=== PATIENT | male | born 1950 | race Caucasian/White ===

== ENCOUNTER → 2020-10-16 13:06 | Outpatient (BNVA) | payer OTHER, SELFPAY | PROVIDERS: Visit Provider Urology | DX: N40.0 Benign prostatic hyperplasia without lower urinary tract symptoms (principal) | CPT/HCPCS: 99212 ==

== ENCOUNTER → 2021-05-31 12:49 | Outpatient (BNVA) | payer OTHER, SELFPAY | PROVIDERS: PCP Internal Medicine; Visit Provider Psychiatry & Neurology Neurology | DX: G20 Parkinson's disease (principal); M79.606 Pain in leg, unspecified | CPT/HCPCS: 99212 ==

== ENCOUNTER → 2021-09-20 13:20 | Outpatient (BNVA) | payer OTHER, SELFPAY | PROVIDERS: PCP Internal Medicine; Visit Provider Nurse Practitioner Family | DX: G20 Parkinson's disease (principal); G62.9 Polyneuropathy, unspecified; Z79.899 Other long term (current) drug therapy | CPT/HCPCS: 99212 ==

== ENCOUNTER → 2022-01-21 13:15 | Outpatient (BNVA) | payer OTHER, SELFPAY | PROVIDERS: PCP Internal Medicine; Visit Provider Psychiatry & Neurology Neurology | DX: G20 Parkinson's disease (principal); G62.9 Polyneuropathy, unspecified | CPT/HCPCS: 99212 ==

== ENCOUNTER → 2022-04-29 10:17 | Outpatient (BNVA) | payer OTHER, SELFPAY | PROVIDERS: PCP Internal Medicine; Visit Provider Psychiatry & Neurology Neurology | DX: G20 Parkinson's disease (principal); G62.9 Polyneuropathy, unspecified | CPT/HCPCS: 99212 ==

== ENCOUNTER → 2022-08-10 12:07 | Outpatient (BNVA) | payer OTHER, SELFPAY | PROVIDERS: PCP Internal Medicine; Visit Provider Psychiatry & Neurology Neurology | DX: G20 Parkinson's disease (principal); G62.9 Polyneuropathy, unspecified | CPT/HCPCS: 99212 ==

== ENCOUNTER 2023-02-08 12:12 | Outpatient (AMB) | payer OTHER, SELFPAY ==
--- NOTE | 2023-02-08 12:35 | MHC.OFFVIS ---
Intake Vital Signs 02/08/23 12:36 Height 6 ft Weight 245 lb 8 oz BMI 33.3 BP 110/70 Blood Pressure Location Rt brachial Position Sitting Respiration 16 Pulse 82 Pulse Source Pulse Oximeter Pulse Oximetry (%) 95 Oxygen Delivery Method Room Air Intake Visit Reasons: 6m follow up Parkinsons/Neuropathy-Conf Intake Note: Pt presents to the office for a 6 month follow up for neuropathy. He reports he's seen no change since his last visit. He c/o neuropathy of the toes, particularly at night. Allergies penicillin V Allergy (Unknown, Verified 02/08/23 12:35) rash Sulfa (Sulfonamide Antibiotics) Allergy (Unknown, Verified 02/08/23 12:35) rash IVP contrast Adverse Reaction (Unknown, Uncoded 02/08/23 12:35) headache for days Medication List - Last Reconciled 02/08/23 by Natasha Pacheco MD ascorbic acid (vitamin C) 180 mg (1.8 x 100 mg) PO DAILY 30 days carbidopa-levodopa 25-100 mg 1-1-1-1 cholecalciferol (vitamin D3) 25 mcg PO DAILY cholecalciferol (vitamin D3) 25 mcg PO DAILY desonide 0.05% appl topical ketoconazole 2% appl topical linaclotide 290 mcg PO DAILY linaclotide (Linzess) 290 mcg PO DAILY loratadine (Claritin) 10 mg PO DAILY magnesium oxide 400 mg PO DAILY mecobalamin (vitamin B12) 1,000 mcg PO DAILY 30 days montelukast 10 mg PO BEDTIME multivitamin 1 tab PO DAILY omega 3-ojc-qct-fish oil 1,000 mg (120 mg-180 mg) (Fish Oil) 1 cap PO TID omeprazole 40 mg PO DAILY pantoprazole 20 mg PO BID polyethylene glycol 3350 grams PO saliva substitute combo no.9 (Biotene Dry Mouth Oral Rinse mouthwash) 15 mL mucous membrane BID-QID PRN selegiline HCl 5 mg PO BID 90 days selegiline HCl 5 mg PO BID sildenafil 50 mg PO DAILY PRN simvastatin 20 mg PO BEDTIME vitamin E (dl, acetate) 450 mg (10 x 45 mg (100 unit)) PO DAILY 30 days xylitol-antiseptic comb no.5 ER simon mucous membrane HPI HPI Comments History of Present Illness Details 71 -yr-old male presents for f/u visit.He has no change in his parkinsons. He has intermittent tremors Pt's current PD medication regimen: Selegeline 5mg bid, Carbidopa-Levodopa 1 tab qid . Do medication effects last between doses: No Do you notice your medications wearing off or kicking in: No He reports severe pain in his legs at night due to neuropathy ? he feels his toes are cramped Sinemet [id number] He reports constipation ADL's: Ind w/ ADLs- has a walk-in shower Swallowing: May have difficulty w/ larger tabs- may cut them in half. Cough: None Drooling: Is prone to drooling and dry mouth. Orthostatic lightheadedness: Denies any recent issues. Constipation: Chronic constipation- now trying 4 glasses hot water, warm prune juice, omeprazole, protonix, miralax Linzess.He is followed up by Dr. Neri Freezing: No Stiffness: Can have transient stiffness if he sits too long.He has trouble getting in and out of the car. Tremor: Some left sided tremor Falls: None Hallucinations: None Memory: Ok. LTM is strong. May forget what he was about to do. Sleep: Tends to sleep on his side. He has a bed rail which helps with transfer. He takes naps during daytime 1/day Voids about twice a night. Followed by Dr Mcleod- [place] Exercise: He is active at home- does gardening/weeding. [facility] Medical History (Updated 02/08/23 @ 12:55 by Natasha Pacheco MD) Nocturnal foot cramps Parkinson's disease without dyskinesia or fluctuating manifestations Back pain Colon polyp Hyperlipidemia Arthritis GERD (gastroesophageal reflux disease) Parkinsons disease Early-onset Parkinson's disease High cholesterol Benign prostatic hyperplasia without lower urinary tract symptoms Surgical History History of surgery Family History Father HTN (hypertension) CAD (coronary artery disease) Mother CVA (cerebral vascular accident) Graves disease Social History Alcohol intake: current Alcohol intake frequency: holidays/special occasions only Patient Tobacco Use Status: Never used Tobacco Physical Exam Vital Signs: Last Vital Signs Pulse 82 02/08/23 12:36 Resp 16 02/08/23 12:36 BP 110/70 02/08/23 12:36 Pulse Ox 95 02/08/23 12:36 Oxygen Delivery Method Room Air 02/08/23 12:36 BMI result Body Mass Index 33.3 Const General: cooperative and no acute distress Orientation/consciousness: patient oriented x3 Resp Effort & Inspection: normal respiratory effort and able to speak in complete sentences Neuro Other: Expression: Mild decreased expression and blink Voice: normal Tone: right UE 2 cogwheel rigidity , left 1 cog wheel rigidity Dyskinesia: None FFM:mild decreased R>L Foot taps: Mild decrease R>L Gait: Slow to stand, slight stoop, decreased arm swing, short steps, steady gait. Psych: Pleasant affect Mild left UE rest tremors General: patient oriented x3 Assessment & Plan Assessment & Plan (1) Parkinson's disease without dyskinesia or fluctuating manifestations: Code(s): G20.A1 - Parkinson's disease without dyskinesia, without mention of fluctuations (2) Nocturnal foot cramps: Code(s): R25.2 - Cramp and spasm Plan continue sinemet 25/100 bid Selegeline 5mg bid I will trial him on ropinirole XR 2mg qhs Medications: New ropinirole ER 2 mg PO BEDTIME 30 tabs 0RF Coding Level of Care Code Est Pt Level 4 (83232) Diagnoses Parkinson's disease without dyskinesia or fluctuating manifestations G20.A1 Nocturnal foot cramps R25.2
[2023-02-08 12:36] VITALS: BP 110/70; PULSE 82; RESP 16; O2SAT 95; BMI 33.3
== END 2023-02-08 13:10 | disposition home or self-care (01) ==
PROVIDERS: Visit Provider Psychiatry & Neurology Neurology
DX: G20.A1 Parkinson's disease without dyskinesia, without mention of fluctuations (principal)
CPT/HCPCS: 99214

== ENCOUNTER → 2023-02-08 12:12 | Outpatient (BNVA) | payer OTHER, SELFPAY | PROVIDERS: Visit Provider Psychiatry & Neurology Neurology | DX: G20.A1 Parkinson's disease without dyskinesia, without mention of fluctuations (principal) | CPT/HCPCS: 99212 ==

== ENCOUNTER 2023-08-14 12:26 | Outpatient (AMB) | payer OTHER, SELFPAY ==
--- NOTE | 2023-08-14 12:30 | MHC.OFFVIS ---
Vital Signs 08/14/23 12:31 Height 6 ft Weight 238 lb BMI 32.3 BP 168/100 H Blood Pressure Location Rt brachial Position Sitting Respiration 17 Pulse 78 Pulse Source Pulse Oximeter Pulse Oximetry (%) 96 Oxygen Delivery Method Room Air Intake Visit Reasons: 6 mo f/u - Parkinsons-lvm Intake Note: Pt presents for 6 month follow up Parkinson's. Director Of Accreditation Required: No Allergies penicillin V Allergy (Unknown, Verified 08/14/23 12:31) rash Sulfa (Sulfonamide Antibiotics) Allergy (Unknown, Verified 08/14/23 12:31) rash IVP contrast Adverse Reaction (Unknown, Uncoded 08/14/23 12:31) headache for days Medication List - Last Reconciled 08/14/23 by Natasha Pacheco MD ascorbic acid (vitamin C) 180 mg (1.8 x 100 mg) PO DAILY 30 days carbidopa-levodopa 25-100 mg 1-1-1-1 cholecalciferol (vitamin D3) 25 mcg PO DAILY cholecalciferol (vitamin D3) 25 mcg PO DAILY desonide 0.05% appl topical ketoconazole 2% appl topical lactulose 10 grams (15 mL) PO BEDTIME linaclotide 290 mcg PO DAILY linaclotide (Linzess) 290 mcg PO DAILY loratadine (Claritin) 10 mg PO DAILY magnesium oxide 400 mg PO DAILY mecobalamin (vitamin B12) 1,000 mcg PO DAILY 30 days montelukast 10 mg PO BEDTIME multivitamin 1 tab PO DAILY omega 7-pqt-bej-fish oil 1,000 mg (120 mg-180 mg) (Fish Oil) 1 cap PO TID omeprazole 40 mg PO DAILY pantoprazole 20 mg PO BID polyethylene glycol 3350 grams PO ropinirole ER 2 mg PO BEDTIME saliva substitute combo no.9 (Biotene Dry Mouth Oral Rinse mouthwash) 15 mL mucous membrane BID-QID PRN selegiline HCl 5 mg PO BID 90 days selegiline HCl 5 mg PO BID sildenafil 50 mg PO DAILY PRN simvastatin 20 mg PO BEDTIME vitamin E (dl, acetate) 450 mg (10 x 45 mg (100 unit)) PO DAILY 30 days xylitol-antiseptic comb no.5 ER simon mucous membrane HPI Comments Details: 72 -yr-old male presents for f/u visit. He has intermittent tremors. He had 2 falls last week when he was bending down to pull weeds. He feels his balance is worse. Pt's current PD medication regimen: Selegeline 5mg bid, Carbidopa-Levodopa 1 tab qid . Do medication effects last between doses: No Do you notice your medications wearing off or kicking in: No He has pain in his legs at 8 pm -lasts 1 hr - he uses a OTC local cream which helps Sinemet [id number] He reports constipation ADL's: Ind w/ ADLs- has a walk-in shower Swallowing: May have difficulty w/ larger tabs- may cut them in half. Cough: None Drooling: Is prone to drooling and dry mouth. Orthostatic lightheadedness: Denies any recent issues. Constipation: Chronic constipation- now trying 4 glasses hot water, warm prune juice, omeprazole, protonix, miralax Linzess.He is followed up by Dr. eNri He feels he worsened and now uses enema . Freezing: No Stiffness: Can have transient stiffness if he sits too long.He has trouble getting in and out of the car. Tremor: Some left sided tremor Falls: None Hallucinations: None Memory: Ok. LTM is strong. May forget what he was about to do. Sleep: Tends to sleep on his side. He has a bed rail which helps with transfer. He takes naps during daytime 1/day Voids about twice a night. Followed by Dr Mcleod- [place] Exercise: He is active at home- does gardening/weeding. [facility] Medical History (Updated 08/14/23 @ 12:51 by Natasha Pacheco MD) Chronic constipation Colon polyp Constipation Nocturnal foot cramps Parkinson's disease without dyskinesia or fluctuating manifestations Back pain Colon polyp Hyperlipidemia Arthritis GERD (gastroesophageal reflux disease) Parkinsons disease Early-onset Parkinson's disease High cholesterol Benign prostatic hyperplasia without lower urinary tract symptoms Surgical History History of surgery Family History Father HTN (hypertension) CAD (coronary artery disease) Mother CVA (cerebral vascular accident) Graves disease Social History Alcohol intake: current Alcohol intake frequency: holidays/special occasions only Patient Tobacco Use Status: Never used Tobacco Physical Exam Vital Signs: Last Vital Signs Pulse 78 08/14/23 12:31 Resp 17 08/14/23 12:31 BP 168/100 H 08/14/23 12:31 Pulse Ox 96 08/14/23 12:31 Oxygen Delivery Method Room Air 08/14/23 12:31 BMI result Body Mass Index 32.3 Const General: cooperative and no acute distress Orientation/consciousness: patient oriented x3 Resp Effort & Inspection: normal respiratory effort and able to speak in complete sentences Neuro Other: Expression: Mild decreased expression and blink Voice: normal Tone: right UE 2 cogwheel rigidity , left 1 cog wheel rigidity Dyskinesia: None FFM:mild decreased R>L Foot taps: Mild decrease R>L Gait: Slow to stand, slight stoop, decreased arm swing, short steps, steady gait. Psych: Pleasant affect Mild left UE rest tremors General: patient oriented x3 Assessment & Plan Assessment & Plan (1) Parkinson's disease without dyskinesia or fluctuating manifestations: Code(s): G20.A1 - Parkinson's disease without dyskinesia, without mention of fluctuations Category: Medical (2) Nocturnal foot cramps: Code(s): R25.2 - Cramp and spasm Category: Medical (3) Chronic constipation: Code(s): K59.09 - Other constipation Category: Medical Plan continue sinemet 25/100 qid Selegeline 5mg bid Refer to GI for constipation Orders: Orders PT Evaluation and Treatment Today G20.A1 - Parkinson's disease without dyskinesia, without mention of fluctuations Referrals Gastroenterology Referral K59.00 - Constipation, unspecified, K63.5 - Polyp of colon Coding Level of Care Code Est Pt Level 4 (63427) Diagnoses Parkinson's disease without dyskinesia or fluctuating manifestations G20.A1 Nocturnal foot cramps R25.2 Chronic constipation K59.09
[2023-08-14 12:31] VITALS: BP 168/100; PULSE 78; RESP 17; O2SAT 96; BMI 32.3
== END 2023-08-14 13:04 | disposition home or self-care (01) ==
PROVIDERS: PCP Internal Medicine; Visit Provider Psychiatry & Neurology Neurology
DX: G20.A1 Parkinson's disease without dyskinesia, without mention of fluctuations (principal); K59.09 Other constipation
CPT/HCPCS: 99214

== ENCOUNTER → 2023-08-14 12:26 | Outpatient (BNVA) | payer OTHER, SELFPAY | PROVIDERS: PCP Internal Medicine; Visit Provider Psychiatry & Neurology Neurology | DX: G20.A1 Parkinson's disease without dyskinesia, without mention of fluctuations (principal); K59.09 Other constipation; Z79.899 Other long term (current) drug therapy | CPT/HCPCS: 99212 ==

== ENCOUNTER 2023-10-31 08:09 | Outpatient (AMB) | payer OTHER, SELFPAY ==
--- NOTE | 2023-10-31 08:16 | MHC.OFFVIS ---
Vital Signs 10/31/23 08:17 Height 6 ft Weight 238 lb BMI 32.3 BP 116/70 Blood Pressure Location Rt brachial Position Sitting Respiration 16 Pulse 84 Pulse Source Pulse Oximeter Pulse Oximetry (%) 98 Oxygen Delivery Method Room Air Intake Visit Reasons: Recurrent Falls - Confirmed Intake Note: Pt presents to the office for evaluation after multiple falls. 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 Allergies penicillin V Allergy (Unknown, Verified 10/31/23 08:17) rash Sulfa (Sulfonamide Antibiotics) Allergy (Unknown, Verified 10/31/23 08:17) rash IVP contrast Adverse Reaction (Unknown, Uncoded 10/31/23 08:17) headache for days Medication List - Last Reconciled 10/31/23 by Natasha Pacheco MD ascorbic acid (vitamin C) 180 mg (1.8 x 100 mg) PO DAILY 30 days carbidopa-levodopa 25-100 mg 04-17-04-17 cholecalciferol (vitamin D3) 25 mcg PO DAILY cholecalciferol (vitamin D3) 25 mcg PO DAILY desonide 0.05% appl topical ketoconazole 2% appl topical lactulose 10 grams (15 mL) PO BEDTIME linaclotide 290 mcg PO DAILY linaclotide (Linzess) 290 mcg PO DAILY loratadine (Claritin) 10 mg PO DAILY magnesium oxide 400 mg PO DAILY mecobalamin (vitamin B12) 1,000 mcg PO DAILY 30 days montelukast 10 mg PO BEDTIME multivitamin 1 tab PO DAILY omega 7-dba-bse-fish oil 1,000 mg (120 mg-180 mg) (Fish Oil) 1 cap PO TID omeprazole 40 mg PO DAILY pantoprazole 20 mg PO BID polyethylene glycol 3350 grams PO saliva substitute combo no.9 (Biotene Dry Mouth Oral Rinse mouthwash) 15 mL mucous membrane BID-QID PRN selegiline HCl 5 mg PO BID sildenafil 50 mg PO DAILY PRN simvastatin 20 mg PO BEDTIME vitamin E (dl, acetate) 450 mg (10 x 45 mg (100 unit)) PO DAILY 30 days xylitol-antiseptic comb no.5 ER simon mucous membrane HPI Comments Details: 72 -yr-old male presents for f/u visit. He had a fall when he stood from a chair and tried to sit back - the chair had wheels and had moved , he fell on the floor and could not move.the second fall was when he stood from the bed feels his slippers gave away .He is using his walker now at home.No dizziness. He has intermittent tremors. He feels his balance is worse. Pt's current PD medication regimen: Selegeline 5mg bid, Carbidopa-Levodopa 1 tab qid . Do medication effects last between doses: No Do you notice your medications wearing off or kicking in: No He has pain in his legs at 8 pm -lasts 1 hr - he uses a OTC local cream which helps Sinemet [id number] He reports constipation ADL's: Ind w/ ADLs- has a walk-in shower Swallowing: May have difficulty w/ larger tabs- may cut them in half. Cough: None Drooling: Is prone to drooling and dry mouth. Orthostatic lightheadedness: Denies any recent issues. Constipation: Chronic constipation- now trying 4 glasses hot water, warm prune juice, omeprazole, protonix, miralax Linzess.He is followed up by Dr. Neri He feels he worsened and now uses enema . Freezing: No Stiffness: Can have transient stiffness if he sits too long.He has trouble getting in and out of the car. Tremor: Some left sided tremor Falls: None Hallucinations: None Memory: Ok. LTM is strong. May forget what he was about to do. Sleep: Tends to sleep on his side. He has a bed rail which helps with transfer. He takes naps during daytime 1/day Voids about twice a night. Followed by Dr Mcleod- [place] Exercise: He is active at home- does gardening/weeding. [facility] Medical History Chronic constipation Colon polyp Constipation Nocturnal foot cramps Parkinson's disease without dyskinesia or fluctuating manifestations Back pain Colon polyp Hyperlipidemia Arthritis GERD (gastroesophageal reflux disease) Parkinsons disease Early-onset Parkinson's disease High cholesterol Benign prostatic hyperplasia without lower urinary tract symptoms Surgical History History of surgery Family History Father HTN (hypertension) CAD (coronary artery disease) Mother CVA (cerebral vascular accident) Graves disease Social History Alcohol intake: current Alcohol intake frequency: holidays/special occasions only Patient Tobacco Use Status: Never used Tobacco Physical Exam Vital Signs: Last Vital Signs Pulse 84 10/31/23 08:17 Resp 16 10/31/23 08:17 BP 116/70 10/31/23 08:17 Pulse Ox 98 10/31/23 08:17 Oxygen Delivery Method Room Air 10/31/23 08:17 BMI result Body Mass Index 32.3 Const General: cooperative and no acute distress Orientation/consciousness: patient oriented x3 Resp Effort & Inspection: normal respiratory effort and able to speak in complete sentences Neuro Other: Expression: Mild decreased expression and blink Voice: normal Tone: right UE 2 cogwheel rigidity , left 1 cog wheel rigidity Dyskinesia: None FFM:mild decreased R>L Foot taps: Mild decrease R>L Gait: Slow to stand, slight stoop, decreased arm swing, short steps, steady gait. Psych: Pleasant affect Mild left UE rest tremors General: patient oriented x3 Assessment & Plan Assessment & Plan (1) Parkinson's disease without dyskinesia or fluctuating manifestations: Code(s): G20.A1 - Parkinson's disease without dyskinesia, without mention of fluctuations Category: Medical (2) Nocturnal foot cramps: Code(s): R25.2 - Cramp and spasm Category: Medical (3) Chronic constipation: Code(s): K59.09 - Other constipation Category: Medical (4) Falls: Code(s): R29.6 - Repeated falls Category: Medical Plan continue sinemet 25/100 qid Selegeline 5mg bid continue PT discussed fall prevention Refer to GI for constipation Coding Level of Care Code Est Pt Level 4 (55411) Complex EM visit Add On G2211 Diagnoses Parkinson's disease without dyskinesia or fluctuating manifestations G20.A1 Nocturnal foot cramps R25.2 Chronic constipation K59.09 Falls R29.6
[2023-10-31 08:17] VITALS: BP 116/70; PULSE 84; RESP 16; O2SAT 98; BMI 32.3
== END 2023-10-31 08:43 | disposition home or self-care (01) ==
PROVIDERS: PCP Internal Medicine; Visit Provider Psychiatry & Neurology Neurology
DX: G20.A1 Parkinson's disease without dyskinesia, without mention of fluctuations (principal); K59.09 Other constipation; R29.6 Repeated falls
CPT/HCPCS: 99214

== ENCOUNTER → 2023-10-31 08:09 | Outpatient (BNVA) | payer OTHER, SELFPAY | PROVIDERS: PCP Internal Medicine; Visit Provider Psychiatry & Neurology Neurology | DX: R29.6 Repeated falls (principal); R25.2 Cramp and spasm; G20.A1 Parkinson's disease without dyskinesia, without mention of fluctuations; K59.09 Other constipation | CPT/HCPCS: 99212 ==

== ENCOUNTER 2024-02-01 14:27 | Outpatient (AMB) | payer OTHER, SELFPAY ==
--- NOTE | 2024-02-01 14:32 | MHC.OFFVIS ---
Vital Signs 02/01/24 14:33 Height 6 ft Weight 234 lb BMI 31.7 BP 139/78 Blood Pressure Location Rt brachial Position Sitting Intake Visit Reasons: Follow Up Intake Note: Patient presents for folloow up Allergies penicillin V Allergy (Unknown, Verified 02/01/24 14:36) rash Sulfa (Sulfonamide Antibiotics) Allergy (Unknown, Verified 02/01/24 14:36) rash IVP contrast Adverse Reaction (Unknown, Uncoded 02/01/24 14:36) headache for days Medication List - Last Reconciled 02/01/24 by Natasha Pacheco MD ascorbic acid (vitamin C) 180 mg (1.8 x 100 mg) PO DAILY 30 days carbidopa-levodopa 25-100 mg 1-1-1- cholecalciferol (vitamin D3) 25 mcg PO DAILY cholecalciferol (vitamin D3) 25 mcg PO DAILY desonide 0.05% appl topical ketoconazole 2% appl topical lactulose 10 grams (15 mL) PO BEDTIME linaclotide 290 mcg PO DAILY linaclotide (Linzess) 290 mcg PO DAILY loratadine (Claritin) 10 mg PO DAILY magnesium oxide 400 mg PO DAILY mecobalamin (vitamin B12) 1,000 mcg PO DAILY 30 days montelukast 10 mg PO BEDTIME multivitamin 1 tab PO DAILY omega 0-wvo-lhb-fish oil 1,000 mg (120 mg-180 mg) (Fish Oil) 1 cap PO TID omeprazole 40 mg PO DAILY pantoprazole 20 mg PO BID polyethylene glycol 3350 grams PO saliva substitute combo no.9 (Biotene Dry Mouth Oral Rinse mouthwash) 15 mL mucous membrane BID-QID PRN selegiline HCl 5 mg PO BID sildenafil 50 mg PO DAILY PRN simvastatin 20 mg PO BEDTIME vitamin E (dl, acetate) 450 mg (10 x 45 mg (100 unit)) PO DAILY 30 days xylitol-antiseptic comb no.5 ER simon mucous membrane HPI Comments Details: 73 -yr-old male presents for f/u visit. He feel his tremors in his left hand and leg has increased. He also has left heel pain for past 1 week .He describes as a sharp pain in the heel radiating worse in the mornings and at night.His neck is tight and his left shoulder is worse He has trouble with handwriting. No falls but multiple near falls He has intermittent tremors. He feels his balance is worse. Pt's current PD medication regimen: Selegeline 5mg bid, Carbidopa-Levodopa 1 tab qid . Do medication effects last between doses: No Do you notice your medications wearing off or kicking in: No He has pain in his legs at 8 pm -lasts 1 hr - he uses a OTC local cream which helps Sinemet [id number] He reports constipation ADL's: Ind w/ ADLs- has a walk-in shower Swallowing: May have difficulty w/ larger tabs- may cut them in half. Cough: None Drooling: Is prone to drooling and dry mouth. Orthostatic lightheadedness: Denies any recent issues. Constipation: Chronic constipation- now trying 4 glasses hot water, warm prune juice, omeprazole, protonix, miralax Linzess.He is followed up by Dr. Neri He feels he worsened and now uses enema . Freezing: No Stiffness: Can have transient stiffness if he sits too long.He has trouble getting in and out of the car. Tremor: Some left sided tremor Falls: None Hallucinations: None Memory: Ok. LTM is strong. May forget what he was about to do. Sleep: Tends to sleep on his side. He has a bed rail which helps with transfer. He takes naps during daytime 1/day Voids about twice a night. Followed by Dr Mcleod- [place] Exercise: He is active at home- does gardening/weeding. [facility] Medical History (Updated 02/01/24 @ 14:55 by Natasha Pacheco MD) Plantar fasciitis, left Chronic constipation Colon polyp Constipation Nocturnal foot cramps Parkinson's disease without dyskinesia or fluctuating manifestations Back pain Colon polyp Hyperlipidemia Arthritis GERD (gastroesophageal reflux disease) Parkinsons disease Early-onset Parkinson's disease High cholesterol Benign prostatic hyperplasia without lower urinary tract symptoms Surgical History History of surgery Family History Father HTN (hypertension) CAD (coronary artery disease) Mother CVA (cerebral vascular accident) Graves disease Social History Alcohol intake: current Alcohol intake frequency: holidays/special occasions only Patient Tobacco Use Status: Never used Tobacco Physical Exam Vital Signs: Last Vital Signs BP 139/78 02/01/24 14:33 BMI result Body Mass Index 31.7 Const General: cooperative and no acute distress Orientation/consciousness: patient oriented x3 Resp Effort & Inspection: normal respiratory effort and able to speak in complete sentences Neuro Other: Expression: Mild decreased expression and blink Voice: normal Tone: right UE 2 cogwheel rigidity , left 1 cog wheel rigidity Dyskinesia: None FFM:mild decreased R>L Foot taps: Mild decrease R>L Gait: Slow to stand, slight stoop, decreased arm swing, short steps, steady gait. Psych: Pleasant affect Mild left UE rest tremors General: patient oriented x3 Assessment & Plan Assessment & Plan (1) Parkinson's disease without dyskinesia or fluctuating manifestations: Code(s): G20.A1 - Parkinson's disease without dyskinesia, without mention of fluctuations Category: Medical (2) Nocturnal foot cramps: Code(s): R25.2 - Cramp and spasm Category: Medical (3) Chronic constipation: Code(s): K59.09 - Other constipation Category: Medical (4) Falls: Code(s): R29.6 - Repeated falls Category: Medical (5) Plantar fasciitis, left: Code(s): M72.2 - Plantar fascial fibromatosis Category: Medical Plan continue sinemet 25/100 qid Selegeline 5mg bid He has a podiatry appointment on 27 PT for plantar facsitis . apply ICE F/u GI for constipation Orders: Orders PT Evaluation and Treatment Today M72.2 - Plantar fascial fibromatosis Coding Level of Care Code Est Pt Level 4 (97498) Complex EM visit Add On G2211 Diagnoses Parkinson's disease without dyskinesia or fluctuating manifestations G20.A1 Nocturnal foot cramps R25.2 Chronic constipation K59.09 Falls R29.6 Plantar fasciitis, left M72.2
[2024-02-01 14:33] VITALS: BP 139/78; BMI 31.7
== END 2024-02-01 15:05 | disposition home or self-care (01) ==
LOC: HO.HSMS 14:27
PROVIDERS: PCP Internal Medicine; Visit Provider Psychiatry & Neurology Neurology
DX: G20.A1 Parkinson's disease without dyskinesia, without mention of fluctuations (principal); R25.2 Cramp and spasm; K59.09 Other constipation; R29.6 Repeated falls; M72.2 Plantar fascial fibromatosis
CPT/HCPCS: 99214

== ENCOUNTER → 2024-02-01 14:27 | Outpatient (BNVA) | payer OTHER, SELFPAY | PROVIDERS: PCP Internal Medicine; Visit Provider Psychiatry & Neurology Neurology | DX: G20.A1 Parkinson's disease without dyskinesia, without mention of fluctuations (principal); K59.09 Other constipation; M72.2 Plantar fascial fibromatosis; R29.6 Repeated falls | CPT/HCPCS: 99212 ==

== ENCOUNTER 2024-04-25 13:48 | Outpatient (AMB) | payer OTHER, SELFPAY ==
[2024-04-25 14:07] VITALS: BP 130/82; BMI 32.1
--- NOTE | 2024-04-25 14:07 | A.OFFVIS_ITS ---
Vital Signs 04/25/24 14:07 Height 6 ft Weight 237 lb BMI 32.1 BP 130/82 Blood Pressure Location Rt brachial Position Sitting Intake Visit Reasons: Follow Up Intake Note: Patient presents for follow up Allergies penicillin V Allergy (Unknown, Verified 04/25/24 14:10) rash Sulfa (Sulfonamide Antibiotics) Allergy (Unknown, Verified 04/25/24 14:10) rash IVP contrast Adverse Reaction (Unknown, Uncoded 04/25/24 14:10) headache for days HPI Comments Details: 73 -yr-old male presents for f/u visit.His parkinsons symptoms are stable. He has some difficulty with hand dexterity.He also has left heel pain .He describes as a sharp pain in the heel radiating worse in the mornings and at night.His neck is tight and his left shoulder is worse The pain in his heel has improved with foot inserts and PT. He has trouble with handwriting. No falls but some near falls. He has intermittent tremors. He feels his balance is worse. Pt's current PD medication regimen: Selegeline 5mg bid, Carbidopa-Levodopa 1 tab qid . He has pain in his legs at 8 pm -lasts 1 hr - he uses a OTC local cream which helps Sinemet [id number] He reports constipation ADL's: Ind w/ ADLs- has a walk-in shower Swallowing: May have difficulty w/ larger tabs- may cut them in half. Cough: None Drooling: Is prone to drooling and dry mouth. Orthostatic lightheadedness: Denies any recent issues. Constipation: Chronic constipation- now trying 4 glasses hot water, warm prune juice, omeprazole, protonix, miralax Linzess.He is followed up by Dr. Neri He feels he worsened and now uses enema . Freezing: No Stiffness: Can have transient stiffness if he sits too long.He has trouble getting in and out of the car. Tremor: Some left sided tremor Falls: None Hallucinations: None Memory: Ok. LTM is strong. May forget what he was about to do. Sleep: Tends to sleep on his side. He has a bed rail which helps with transfer. He takes naps during daytime 1/day Voids about twice a night. Followed by Dr Mcleod- Exercise: He is active at home- does gardening/weeding. [facility] Medical History Plantar fasciitis, left Chronic constipation Colon polyp Constipation Nocturnal foot cramps Parkinson's disease without dyskinesia or fluctuating manifestations Back pain Colon polyp Hyperlipidemia Arthritis GERD (gastroesophageal reflux disease) Parkinsons disease Early-onset Parkinson's disease High cholesterol Benign prostatic hyperplasia without lower urinary tract symptoms Surgical History History of surgery Family History Father HTN (hypertension) CAD (coronary artery disease) Mother CVA (cerebral vascular accident) Graves disease Social History Alcohol intake: current Alcohol intake frequency: holidays/special occasions only Patient Tobacco Use Status: Never used Tobacco Physical Exam Vital Signs: Last Vital Signs BP 130/82 04/25/24 14:07 BMI result Body Mass Index 32.1 Const General: cooperative and no acute distress Orientation/consciousness: patient oriented x3 Resp Effort & Inspection: normal respiratory effort and able to speak in complete sentences Neuro Other: Expression: Mild decreased expression and blink Voice: normal Tone: right UE 2 cogwheel rigidity , left 1 cog wheel rigidity Dyskinesia: None FFM:mild decreased R>L Foot taps: Mild decrease R>L Gait: Slow to stand, slight stoop, decreased arm swing, short steps, steady gait. Psych: Pleasant affect no tremors General: patient oriented x3 Assessment & Plan Assessment & Plan (1) Parkinson's disease without dyskinesia or fluctuating manifestations: Code(s): G20.A1 - Parkinson's disease without dyskinesia, without mention of fluctuations Category: Medical (2) Nocturnal foot cramps: Code(s): R25.2 - Cramp and spasm Category: Medical (3) Chronic constipation: Code(s): K59.09 - Other constipation Category: Medical (4) Falls: Code(s): R29.6 - Repeated falls Category: Medical (5) Plantar fasciitis, left: Code(s): M72.2 - Plantar fascial fibromatosis Category: Medical Plan continue sinemet 25/100 qid Selegeline 5mg bid f/u with podiatry F/u GI for constipation Coding Level of Care Code New Pt Level 4 (81804) Complex EM visit Add On G2211 Diagnoses Parkinson's disease without dyskinesia or fluctuating manifestations G20.A1 Nocturnal foot cramps R25.2 Chronic constipation K59.09 Falls R29.6 Plantar fasciitis, left M72.2
== END 2024-04-25 14:37 | disposition home or self-care (01) ==
PROVIDERS: PCP Internal Medicine; Visit Provider Psychiatry & Neurology Neurology
DX: G20.A1 Parkinson's disease without dyskinesia, without mention of fluctuations (principal); K59.09 Other constipation; R29.6 Repeated falls; M72.2 Plantar fascial fibromatosis
CPT/HCPCS: 99214

== ENCOUNTER → 2024-04-25 13:48 | Outpatient (BNVA) | payer OTHER, SELFPAY | PROVIDERS: PCP Internal Medicine; Visit Provider Psychiatry & Neurology Neurology | DX: G20.A1 Parkinson's disease without dyskinesia, without mention of fluctuations (principal); M72.2 Plantar fascial fibromatosis; R25.2 Cramp and spasm; R29.6 Repeated falls; K59.09 Other constipation | CPT/HCPCS: 99212 ==

== ENCOUNTER 2024-10-17 14:41 | Outpatient (AMB) | payer OTHER, SELFPAY ==
[2024-10-17 14:44] VITALS: BP 132/82; PULSE 82
--- NOTE | 2024-10-17 14:44 | MHC.OFFVIS ---
Vital Signs 10/17/24 14:44 Height 6 ft BP 132/82 Blood Pressure Location Rt brachial Position Sitting Pulse 82 Pulse Source Pulse Oximeter Intake Visit Reasons: Follow Up Intake Note: Patient following up Allergies penicillin V Allergy (Unknown, Verified 10/17/24 14:45) rash Sulfa (Sulfonamide Antibiotics) Allergy (Unknown, Verified 10/17/24 14:45) rash IVP contrast Adverse Reaction (Unknown, Uncoded 10/17/24 14:45) headache for days HPI Comments Details: 73 -yr-old male presents for f/u visit.His parkinsons symptoms are stable. The increase in sinemet 25/100 dose to 1 1/2 tabs qid helped He has some difficulty with hand dexterity. The night time cramps are better with a supplement ( Nervex rub ) from [facility].He also has left heel pain .He describes as a sharp pain in the heel radiating worse in the mornings and at night.His neck is tight and his left shoulder is worse The pain in his heel has improved with foot inserts and PT. He has trouble with handwriting. No falls He has intermittent tremors. He has dizziness when he clim[place] the steps in the [facility]- using an elevator helps. Pt's current PD medication regimen: Selegeline 5mg bid, Carbidopa-Levodopa 1 1/2 tab qid . He reports constipation ADL's: Ind w/ ADLs- has a walk-in shower Swallowing: May have difficulty w/ larger tabs- may cut them in half. Cough: None Drooling: Is prone to drooling and dry mouth. Orthostatic lightheadedness: Denies any recent issues. Constipation: Chronic constipation- now trying 4 glasses hot water, warm prune juice, omeprazole, protonix, miralax Linzess.He is followed up by Dr. Neri He feels he worsened and now uses enema . Freezing: No Stiffness: Can have transient stiffness if he sits too long.He has trouble getting in and out of the car. Tremor: Some left sided tremor Falls: None Hallucinations: None Memory: Ok. LTM is strong. May forget what he was about to do. Sleep: Tends to sleep on his side. He has a bed rail which helps with transfer. He takes naps during daytime 1/day Voids about twice a night. Followed by Dr Nannette OTERO Exercise: He is active at home- does gardening/weeding. [facility] Medical History Plantar fasciitis, left Chronic constipation Colon polyp Constipation Nocturnal foot cramps Parkinson's disease without dyskinesia or fluctuating manifestations Back pain Colon polyp Hyperlipidemia Arthritis GERD (gastroesophageal reflux disease) Parkinsons disease Early-onset Parkinson's disease High cholesterol Benign prostatic hyperplasia without lower urinary tract symptoms Surgical History History of surgery Family History Father HTN (hypertension) CAD (coronary artery disease) Mother CVA (cerebral vascular accident) Graves disease Social History Alcohol intake: current Alcohol intake frequency: holidays/special occasions only Patient Tobacco Use Status: Never used Tobacco Physical Exam Vital Signs: Last Vital Signs Pulse 82 10/17/24 14:44 BP 132/82 10/17/24 14:44 Const General: cooperative and no acute distress Orientation/consciousness: patient oriented x3 Resp Effort & Inspection: normal respiratory effort and able to speak in complete sentences Neuro Other: Expression: Mild decreased expression and blink Voice: normal Tone: right UE 2 cogwheel rigidity , left 1 cog wheel rigidity Dyskinesia: None FFM:mild decreased R>L Foot taps: Mild decrease R>L Gait: Slow to stand, slight stoop, decreased arm swing, short steps, steady gait. Psych: Pleasant affect no tremors General: patient oriented x3 Assessment & Plan Assessment & Plan (1) Parkinson's disease without dyskinesia or fluctuating manifestations: Code(s): G20.A1 - Parkinson's disease without dyskinesia, without mention of fluctuations Category: Medical (2) Nocturnal foot cramps: Code(s): R25.2 - Cramp and spasm Category: Medical (3) Chronic constipation: Code(s): K59.09 - Other constipation Category: Medical (4) Falls: Code(s): R29.6 - Repeated falls Category: Medical (5) Plantar fasciitis, left: Code(s): M72.2 - Plantar fascial fibromatosis Category: Medical Plan continue sinemet 25/100 1 1/2 tabs qid Selegeline 5mg bid f/u with podiatry F/u GI for constipation Coding Level of Care Code Est Pt Level 4 (43116) Complex EM visit Add On G2211 Diagnoses Parkinson's disease without dyskinesia or fluctuating manifestations G20.A1 Nocturnal foot cramps R25.2 Chronic constipation K59.09 Falls R29.6 Plantar fasciitis, left M72.2
== END 2024-10-17 15:49 | disposition home or self-care (01) ==
PROVIDERS: PCP Internal Medicine; Visit Provider Psychiatry & Neurology Neurology
DX: G20.A1 Parkinson's disease without dyskinesia, without mention of fluctuations (principal); R25.2 Cramp and spasm; K59.09 Other constipation; R29.6 Repeated falls; M72.2 Plantar fascial fibromatosis
CPT/HCPCS: 99214

== ENCOUNTER → 2024-10-17 14:41 | Outpatient (BNVA) | payer OTHER, SELFPAY | PROVIDERS: PCP Internal Medicine; Visit Provider Psychiatry & Neurology Neurology | DX: M72.2 Plantar fascial fibromatosis (principal); G20.A1 Parkinson's disease without dyskinesia, without mention of fluctuations; K59.09 Other constipation; R29.6 Repeated falls | CPT/HCPCS: 99212 ==

== ENCOUNTER 2025-03-26 15:12 | Outpatient (AMB) | payer OTHER, SELFPAY ==
[2025-03-26 15:11] VITALS: BP 162/100; PULSE 75; O2SAT 97; BMI 31.3
--- NOTE | 2025-03-26 15:11 | A.OFFVIS_ITS ---
Vital Signs 03/26/25 15:11 Height 6 ft Weight 231 lb 2 oz BMI 31.3 BP 162/100 H Blood Pressure Location Rt brachial Position Sitting Pulse 75 Pulse Source Pulse Oximeter Pulse Oximetry (%) 97 Oxygen Delivery Method Room Air Intake Visit Reasons: Follow up Intake Note: Follow up Parkinson's disease without dyskinesia or fluctuating manifestations, constipation and falls Consumer Experience Consultant Required: No Accompanied by: Self / Same As Patient Allergies penicillin V Allergy (Unknown, Verified 03/26/25 15:11) rash Sulfa (Sulfonamide Antibiotics) Allergy (Unknown, Verified 03/26/25 15:11) rash IVP contrast Adverse Reaction (Unknown, Uncoded 10/17/24 14:45) headache for days HPI Comments Details: 73 -yr-old male presents for f/u visit.His parkinsons symptoms are stable.He reports drop in blood pressure - when he climbs up the stairs. The main issue today is constipation.He saw GI - his bowel movements have improved. Milk of magnesia and colon prep once a month.He does enema twice a day He drinks lot of fluids . He reports short term memory issues.No falls. He has some difficulty with hand dexterity. The night time cramps are better with a supplement ( Nervex rub ) from [facility].He also has left heel pain . The pain in his heel has improved with foot inserts and PT- resolved He has trouble with handwriting. N He has intermittent tremors. He has dizziness when he climbs the steps in the fitness center- using an elevator helps. Pt's current PD medication regimen: Selegeline 5mg bid, Carbidopa-Levodopa 1 1/2 tab qid . ADL's: Ind w/ ADLs- has a walk-in shower Swallowing: May have difficulty w/ larger tabs- may cut them in half. Cough: None Drooling: Is prone to drooling and dry mouth. Orthostatic lightheadedness: Denies any recent issues. Constipation: Chronic constipation- now trying 4 glasses hot water, warm prune juice, omeprazole, protonix, miralax Linzess.He feels he worsened and now uses enema . Freezing: No Stiffness: Can have transient stiffness if he sits too long.He has trouble getting in and out of the car. Tremor: Some left sided tremor Falls: None Hallucinations: None Memory: . LTM is strong. May forget what he was about to do. Sleep: Tends to sleep on his side. He has a bed rail which helps with transfer. He takes naps during daytime 1/day Voids about twice a night. Followed by Dr Nannette OTERO Exercise: He is active at home- does gardening/weeding. [facility] Medical History Plantar fasciitis, left Chronic constipation Colon polyp Constipation Nocturnal foot cramps Parkinson's disease without dyskinesia or fluctuating manifestations Back pain Colon polyp Hyperlipidemia Arthritis GERD (gastroesophageal reflux disease) Parkinsons disease Early-onset Parkinson's disease High cholesterol Benign prostatic hyperplasia without lower urinary tract symptoms Surgical History History of surgery Family History Father HTN (hypertension) CAD (coronary artery disease) Mother CVA (cerebral vascular accident) Graves disease Social History Alcohol intake: current Alcohol intake frequency: holidays/special occasions only Patient Tobacco Use Status: Never used Tobacco Physical Exam Vital Signs: Last Vital Signs Pulse 75 03/26/25 15:11 BP 162/100 H 03/26/25 15:11 Pulse Ox 97 03/26/25 15:11 Oxygen Delivery Method Room Air 03/26/25 15:11 BMI result Body Mass Index 31.3 Const General: cooperative and no acute distress Orientation/consciousness: patient oriented x3 Resp Effort & Inspection: normal respiratory effort and able to speak in complete sentences Neuro Other: Expression: Mild decreased expression and blink Voice: normal Tone: right UE 2 cogwheel rigidity , left 1 cog wheel rigidity Dyskinesia: None FFM:mild decreased R>L Foot taps: Mild decrease R>L Gait: Slow to stand, slight stoop, decreased arm swing, short steps, steady gait. Psych: Pleasant affect no tremors General: patient oriented x3 Assessment & Plan Assessment & Plan (1) Parkinson's disease without dyskinesia or fluctuating manifestations: Code(s): G20.A1 - Parkinson's disease without dyskinesia, without mention of fluctuations Category: Medical (2) Nocturnal foot cramps: Code(s): R25.2 - Cramp and spasm Category: Medical (3) Chronic constipation: Code(s): K59.09 - Other constipation Category: Medical (4) Falls: Code(s): R29.6 - Repeated falls Category: Medical (5) Plantar fasciitis, left: Code(s): M72.2 - Plantar fascial fibromatosis Category: Medical Plan change sinemet 25/100 1 tab 6 times a day- patient reports difficulty with cutting pills Selegeline 5mg bid f/u with podiatry F/u GI for constipation Monitor cognition Coding Level of Care Code Est Pt Level 4 (14245) Add On Problem Visit Only Diagnoses Parkinson's disease without dyskinesia or fluctuating manifestations G20.A1 Nocturnal foot cramps R25.2 Chronic constipation K59.09 Falls R29.6 Plantar fasciitis, left M72.2
--- OUTSIDE RECORDS SUMMARY | 2025-03-26 23:45 | XMS_ITS | Encounter Summary ---
[facility] [address] [place] [address] Care Team Providers Care Implementation Coordinator Name Role Phone Leticia Muniz MD Primary Care Prov ider Encounter Details Date Type Department Care Team (Late st Contact Info) Description 01/23/2025 Results Follow-Up Gastroenterology - [address] [place] [address] Chris Cortez MD [address] [address] Social History Tobacco Use Types Packs/Day Years Used Date Smoking Tobacco: Never Smokeless Tobacco: Never Alcohol Use Standard Drinks/Week Comments Never 0 (1 standard drink = 0.6 oz pur e alcohol) Sex and Gender Information Value Date Recorded Sex Assigned at Male 04/22/2024 6:14 AM EST Legal Sex Male 7:46 AM EST Gender Identity Male 04/22/2024 6:14 AM EST Sexual Orientation Straight 04/22/2024 6: 15 AM EST documented as of this encounter Functional Status * Are you deaf or do you have serious difficulty hearing? Answer Date of Assessment Author No 11/11/2024 4:43 PM EDT Manisha Dubois RN * Are you blind or do you have serious difficulty seeing, even when wearing glasses? Answer Date of Assessment Author No 11/11/2024 4:43 PM EDT Manisha Dubois RN * Do you have serious difficulty walking or climbing stairs? Answer Date of Assessment Author No 11/11/2024 4:43 PM EDT Manisha Dubois RN * Do you have serious difficulty dressing or bathing? Answer Date of Assessment Author No 11/11/2024 4:43 PM EDT Manisha Dubois RN * Because of a physical, mental, or emotional condition, do you have serious difficulty doing errandsalone such as visiting the doctor? Answer Date of Assessment Author No 11/11/2024 4:43 PM EDT Manisha Dubois RN documented as of this encounter Mental Status * Because of a physical, mental, or emotional condition, do you have serious difficulty concentrating, remembering, or making decisions? (5 years old or older) Answer Entry Date Author No 11/11/2024 4:43 PM EDT Manisha Dubois RN documented in this encounter Plan of Treatment Upcoming Encounters Date Type Department Care Team (Late st Contact Info) Description 05/30/2025 3:45 PM EST Office Visit Adult Medicine [facility] [address] [place] [address] Leticia Muniz MD [address] [place] [address] 08/01/2025 2:00 PM EDT Office Visit Gastroenterology - [address] [phone] Tyra Myers NP [address] [address] documented as of this encounter Visit Diagnoses Not on filedocumented in this encounter Care Teams Implementation Coordinator Relationship Specialty Start Date End Date Leticia Muniz MD [address] [place] [address] PCP - General Internal Medicine 08/26/20 documented as of this encounter
--- OUTSIDE RECORDS SUMMARY | 2025-03-26 23:45 | XMS_ITS | Clinical Summary ---
Author Organization [facility] [address] [facility] lding Address [address] [place] [address] Phone Care Team Providers Care Finance Effectiveness Manager Name Role Phone Leticia Muniz MD Primary Care Prov ider Allergies Active Allergy Reactions Criticality Noted Date Comments House Dust 12/27/2016 Iodinated Contrast Media Headache 02/24/2014 Mold 12/27/2016 Mushroom 01/22/2025 Penicillins Rash 01/05/2012 Pollen Extracts 12/27/2016 Sulfa (Sulfonamide Antibiotics) Hives,Rash 12/17 Medications acetaminophen (TYLENOL EXTRA STRENGTH ORAL) Take by mouth. Active cyanocobalamin (VITAMIN B-12) 1,000 mcg tablet Take 1 tablet by mouth daily. 2 Active inulin-chromium picolinate (Fiber Select Gummies) 2-100 gram-mcg tablet,chewable Take 1 Tablet by mouth 2 times daily as needed (fiber for bowel movements). 4 Active loratadine/pseudo ephedrine (CLARITIN-D 24 HOUR ORAL) Take by mouth daily. Active MAGNESIUM OXIDE ORAL Take 1 Tablet by mouth daily. 3 Active psyllium husk, with sugar, (Fiber, psyllium husk-sugar,) 3.4 gram/7 gram powder Take by mouth. Activ e saliva substitute (Biotene Dry Mouth Oral Rinse) mouthwash Take by mouth. Activ e multivitamin (MULTIPLE VITAMINS ORAL) Take 1 tablet by mouth daily. Active sodium chloride 3 % aerosol,spray by Nasal route. Active sodium flouride (LURIDE) 0.5 mg/mL oral solution Take by mouth. Activ e barium sulfate (Readi-Cat 2) 2 % (w/v) suspension Take 900 mL by mouth 2 times daily. 3 Active betamethasone, augmented, (DIPROLENE-AF) 0.05 % cream APPLY SPARINGLY THREE TIMES A DAY FOR POISON CLAY OF LEGS UNTIL IMPROVED 4 Active polycarbophil (FIBERCON) 625 mg tablet Take 1 tablet (625 mg total) by mouth 2 (two) times a day. 3 Active carbidopa-levodop a (SINEMET) 25-100 mg per tablet Takes 150mg total daily 2 Active cholecalciferol (VITAMIN D-3) 25 mcg (1,000 unit) tablet Take 1 Tablet by mouth daily. Change in dose based on recent lab work. 2 Active desonide (DESOWEN) 0.05 % cream Apply topically 2 times daily. Apply topical prn Active docusate sodium (COLACE) 100 mg capsule Take 1 capsule (100 mg total) by mouth 2 (two) times a day. 3 Active flunisolide (NASALIDE) 25 mcg (0.025 %) spray,non-aerosol by Nasal route. Active ketoconazole (NIZORAL) 2 % cream 1 Active lactulose (Generlac) solution Take 15 mL by mouth 3 times daily as needed for Other. 3 Active lactulose (CHRONULAC) solution Take 30 mL by mouth 2 times daily. Pts #- [id number] 3 Active aluminum-magnesiu m hydroxide-simethi cone (MAALOX) 200-200-20 mg/5 mL suspension Take 15 mL by mouth 4 times daily (before meals and nightly). 3 Active montelukast (SINGULAIR) 10 mg tablet Take 10 mg by mouth. Seasonal Active omega-3 acid ethyl esters (LOVAZA) 1 gram capsule Take by mouth 3 times daily. Active pantoprazole (PROTONIX) 20 mg EC tablet Take 1 Tablet by mouth 2 times daily (before meals). 3 Active polyethylene glycol (PEG) 17 gram/dose oral powder Take 17 g by mouth 3 times daily. Pts #=[id number] 3 Active prucalopride (Motegrity) 1 mg tablet Take 1 Tablet by mouth 2 times daily as needed for Other. 3 Active selegiline (ELDEPRYL) 5 mg tablet Take 1 Tab by mouth 2 times daily (with meals). 9 Active simvastatin (ZOCOR) 20 mg tablet TAKE 1 TABLET BY MOUTH AT BEDTIME 3 Active omeprazole (PriLOSEC) [address] capsule Take 1 capsule (40 mg total) by mouth 1 (one) time each day. Do not crush or chew. Active psyllium (METAMUCIL) powder Take 1 packet by mouth 1 (one) time each day. Active magnesium hydroxide (MILK OF MAGNESIA) 400 mg/5 mL suspension Take 5 mL by mouth 1 (one) time each day if needed for constipation. Active polyethylene glycol (MIRALAX) 17 gram packetIndications :Constipation, unspecified constipation type Take 17 g by mouth 1 (one) time each day. 510 g 11 5 01/23/20 26 Active linaCLOtide (Linzess) 290 mcg capsuleIndication s:Constipation, unspecified constipation type Take 1 capsule (290 mcg total) by mouth 1 (one) time each day before breakfast. 30 each 11 5 01/24/20 26 Active fluticasone propionate (FLONASE) 50 mcg/actuation nasal sprayIndications: Acute laryngitis Administer 2 sprays into each nostril 1 (one) time each day. Shake gently. Before first use, prime pump. After use, clean tip and replace cap. 16 g 5 5 02/19/20 Active Active Problems Problem Noted Date Diagnosed Date Prediabetes 06/04/2024 Urinary incontinence 05/24/2024 Abdominal discomfort 03/04/2024 Constipation 03/04/2024 Diverticulitis 03/04/2024 Gastric pain 03/04/2024 GERD (gastroesophageal reflux disease) Parkinson's disease 04/08/2019 Peripheral neuropathy 03/11/2019 Osteoarthritis 01/10/2019 Overview (03/04/2024): Lumbosacral Spine, Hips Obesity (BMI 30.0-34.9) 06/07/2018 Tinnitus 10/25/2016 IBS (irritable bowel syndrome) 08/01/2016 Overview (03/04/2024): Sees Dr Hall BPH (benign prostatic hyperplasia) 06/17/2014 Colon polyp 06/12/2014 Overview (03/04/2024): [place] done 08/2015, due in 5 yrs Fatty liver 05/22/2013 Low back pain 02/27/2012 Overview (03/04/2024): Sees Dr Herber Arzola, chiropractor Allergic rhinitis 01/05/2012 Constipation, slow transit 01/05/2012 Hypercholesteremia 01/05/2012 Encounters Date Type Department Care Team Description 02/21/2025 Telephone Adult Medicine - [place] [address] [place] [phone] Leticia Fontana MD 02/18/2025 11:30 AM EST Office Visit Adult Medicine [facility] [address] [place] [phone] Emma Elliott NP Acute laryngitis (Primary Dx) 02/18/[address] [facility] [address] [place] [phone] Leticia Fontana MD 01/23/2025 Results Follow-Up Gastroenterology - [address] [phone] Chris Cortez MD 01/22/2025 11:20 AM EDT - 01/22/2025 11:59 PM EDT Hospital Encounter [facility] Xray [address] [place] [phone] Constipation, unspecified constipation type Discharge Disposition: Home or Self Care 01/22/2025 10:20 AM EDT Office Visit Gastroenterology - [address] [phone] Chris Cortez MD Constipation, unspecified constipation type (Primary Dx) 01/22/2025 Telephone Gastroenterology - [address] [place] [address] [facility] [address] [place] [address] Chris Cortez MD 12/25/2024 Telephone Adult Medicine - [place] [address] [place] [address] Tim John PA from Last 3 Months Immunizations Immunization Administration Dates Next Due Influenza trivalent, 0.5mL ( Fluad) 65yo and older 12/22/2023,12/29/2022,12/27/2021,12/30,12/22/2019,01/17/2019,12/28/2017 ,12/27/2016 Influenza trivalent, 0.5mL ( Fluzone High-dose) 65yo and older 01/07/2025 Influenza trivalent, 0.5mL, preservative free (Fluarix; FluLaval; Fluzone) ages 6mo and older (Afluria) 3 years and older 12/31/2015,12/24/2011,07/10/2005 [facility] SARS-CoV-2 COVID-19, mRNA, LNP-S, preservative free 03/03/2022,10/07/2021,02/09/2021,06/24,05/27/2020 [facility] SARS-CoV-2 COVID-19, mRNA, LNP-S, preservative free 01/11/2023 Pneumococcal conjugate 13 va lent (Prevnar 13, PCV13) 2mo and older 12/27/2016 Pneumococcal polysaccharide 23 valent (Pneumovax 23) 2yo and older 06/07/2018,07/10/2005 Td Tetanus diptheria (Tdvax) 7yo and older 08/11/2010,11/08/2002 Tdap Tetanus diptheria acell ular pertussis (Boostrix; Adacel) 7yo and older 01/31/2022,08/12/2011 Zoster Live 01/12/2019 Zoster recombinant (Shingrix ) 19yo and older 11/19/2024,01/17/2019,10/03/2018,09/20 Surgical History Surgery Date Site/Laterality Comments PROSTATE SURGERY PROCEDURE: HISTORICAL PROSTATE SURGERY; COMMENT: for BPH has uretheral needle ablation ABDOMINAL SURGERY 2005 PROCEDURE: HISTORICAL ABDOMINAL SURGERY; COMMENT: exploratory laprotomy for ileus COLONOSCOPY 10/31/2005 PROCEDURE: HISTORICAL COLONOSCOPY; COMMENT: right colon polyp- Andrez Hall M.D. COLONOSCOPY 09/28/2010 PROCEDURE: HISTORICAL COLONOSCOPY; COMMENT: Diverticulosis COLONOSCOPY 2002 PROCEDURE: HISTORICAL COLONOSCOPY; COMMENT: benign polyp COLONOSCOPY PROCEDURE: HISTORICAL COLONOSCOPY; COMMENT: [address] Hall- needs repeat in 2020 Medical History Medical History Date Comments Hypercholesteremia 01/05/2012 DX:Hyperchole steremia Allergic rhinitis 01/05/2012 DX:Allergic rh initis Colon polyp 06/12/2014 DX:Colon polyp GERD (gastroesophageal reflux disease) DX:GERD (gastroesophageal reflux disease) IBS (irritable bowel syndrome) 08/01/2016 D X:IBS (irritable bowel syndrome); COMMENT: Sees Dr Hall Tinnitus 10/25/2016 DX:Tinnitus Osteoarthritis 01/10/2019 DX:Osteoarthriti s; COMMENT: Lumbosacral Spine, Hips Fatty liver 05/22/2013 DX:Fatty liver Constipation, slow transit 01/05/2012 DX:Co nstipation, slow transit BPH (benign prostatic hyperplasia) 06/17/2014 DX:BPH (benign prostatic hyperplasia) Low back pain 02/27/2012 DX:Low back pain ; COMMENT: Sees Dr Herber Arzola, chiropractor Obesity (BMI 30.0-34.9) 06/07/2018 DX:Obesi ty (BMI 30.0-34.9) Constipation DX:Constipation Peripheral neuropathy 03/11/2019 DX:Periphe ral neuropathy Abdominal discomfort DX:Abdomina l discomfort History of gastroenteritis DX:Hi story of gastroenteritis Diverticulitis DX:Diverticuliti s Gastric pain DX:Gastric pain Fatty liver DX:Fatty liver Dry mouth DX:Dry mouth Parkinson's disease (CMS/HCC V24, CMS/HCC V28) DX:Parkinson's disease (HCC) ; COMMENT: Dr. Rudolph Abdominal discomfort DX:Abdomina l discomfort Abdominal discomfort DX:Abdomina l discomfort Family History Medical History Relation Name Comments Other: Graves Disease Brother 1 Prostate cancer Brother 2 Hyperthyroid ism Other: Back problems Brother 3 X3 No Known Problems Brother 4 Hypertension Father CVA, CAD, age 53 Heart failure Mother age 89 Other: healthy Sister 1 Relation Name Status Comments Brother 1 Alive Brother 2 Alive Brother 3 Alive Brother 4 Alive Father age 64, HT N, CVA Maternal Grandfather Maternal Grandmother Mother CHF Paternal Grandfather Paternal Grandmother Sister 1 Sister 2 Alive Social History Tobacco Use Types Packs/Day Years [...] Orientation Straight 04/22/2024 6: 15 AM EST Last Filed Vital Signs Vital Sign Reading Time Taken Comments Blood Pressure 143/83 02/18/2025 11:28 AM EST Pulse 75 02/18/2025 11:28 AM EST Temperature 36.5 C (97.7 F) 02/18/2025 11:28 AM EST Respiratory Rate 20 11/22/2024 2:03 PM EDT Oxygen Saturation 100% 11/11/2024 4:03 PM EDT Inhaled Oxygen Concentration - - Weight 106 kg (233 lb) 02/18/2025 11:28 AM EST Height 182.9 cm (6') 02/18/2025 11:28 AM EST Body Mass Index 31.6 02/18/2025 11:28 AM EST Plan of Treatment Upcoming Encounters Date Type Department Care Team (Late st Contact Info) Description 05/30/2025 3:45 PM EST Office Visit Adult Medicine - [place] [address] [place] [phone] Leticia Muniz MD [address] [place] [address] 08/01/2025 2:00 PM EDT Office Visit Gastroenterology - [address] [place] [phone] Tyra Myers NP [address] [address] Health Maintenance Due Date Last Done Comments Social Influencers of Health Screening 03/26/2022 Depression Screening 04/16/2025 Postpon ed from 04/17/2024 (Not clinically appropriate to address at this time) Colorectal Cancer Screening: Colonoscopy 11/04/2025 11/04/2020 Cholesterol Screening (Lipid Panel) 05/24/2029 05/24/2024, 04/11/2023 DTaP,Tdap,and Td Vaccines (6 - Td or Tdap) 02/01/2032 01/31/2022, 08/12/2011, 08/12/2011, Additional history exists Hepatitis C Screening Completed 10/06/2014 Pneumococcal Vaccine: 50+ Years Completed 06/07/2018, 12/27/2016, 07/10/2005 COVID-19 Vaccine Discontinued 01/11/2023, , 10/07/2021, Additional history exists RSV Immunization Adult Patients Completed 06/18/2024 Zoster Vaccines Completed 11/19/2024, 100 06/2018, 01/12/2019, Additional history exists Influenza Vaccine Completed 01/07/2025, , 12/17/2023, Additional history exists Falls Risk Assessment Discontinued HIB Vaccines Aged Out No longer eligi ble based on patient's age to complete this topic HPV Vaccines Aged Out No longer eligi ble based on patient's age to complete this topic Hepatitis A Vaccines Aged Out No long er eligible based on patient's age to complete this topic Hepatitis B Vaccines Aged Out No long er eligible based on patient's age to complete this topic IPV Vaccines Aged Out No longer eligi ble based on patient's age to complete this topic MMR Vaccines Aged Out No longer eligi ble based on patient's age to complete this topic Meningococcal ACWY Vaccine Aged Out N o longer eligible based on patient's age to complete this topic Meningococcal B Vaccine Aged Out No l onger eligible based on patient's age to complete this topic RSV Immunization Patients Under 20 months Aged Out No longer eligible based on patient's age to complete this topic Varicella Vaccines Aged Out No longer eligible based on patient's age to complete this topic Procedures Procedure Name Priority Date/Time Associated Diagnosis Comments POC RAPID STREP A, MOLECULAR Routine 02/18/2025 11:23 AM EST Acute laryngitis XR ABDOMEN 1 VIEW Routine 01/22/2025 11: 34 AM EDT Constipation, unspecified constipation type LIPID PANEL WITH REFLEX TO DIRECT LDL Routine 05/24/2024 1:45 PM EST Hypercholesteremia EXTERNAL COLONOSCOPY REPORT Routine 11/04/2020 5:09 PM EDT HM HEPATITIS C SCREENING Routine 10/06/2014 from Last 3 Months or Most Recently Relevant to Health Maintenance Results * POC RAPID STREP A, Molecular (02/18/2025 11:23 AM EST) POC Strep A GeneXpert Negative Negative Swab Structure of anterior region of neck / Unknown 02/18/2025 11:23 AM EST Emma Elliott NP POINT OF CARE TEST ENTER/EDIT ORDERABLES Final Result * XR Abdomen 1 View (01/22/2025 11:34 AM EDT) Anatomical Region Laterality Modality Body Radiographic Ivonne ging 01/22/2025 11:5 0 AM EDT Impressions 01/22/2025 11:51 AM EDT Nonobstructive bowel gas pattern. There is evidence of moderate constipation, unchanged since 08/15/2023. Code 03791 -------- FINAL REPORT -------- Dictated By: Morgan Spicer Dictated Date: 01/22/2025 11:50 ET Assigned Physician: Morgan Spicer Reviewed and Electronically Signed By: Morgan Spicer Signed Date: 01/22/2025 11:51 ET Workstation ID: [id number] Transcribed By: Self Edit Transcribed Date: 01/22/2025 11:50 ET Narrative 01/22/2025 11:51 AM EDT HISTORY: The patient is a 74-year-old male with constipation. FINDINGS: Supine radiographs of the abdomen demonstrate normal appearance of the bony structures. The bowel gas pattern is nonobstructive. There is a moderate amount of fecal material in the colon from the cecum to the distal descending colon consistent with moderate constipation, similar to that seen on the prior study performed 08/15/2023. No mass or radiopaque calculus is seen. Procedure Note Morgan Spicer MD - 01/22/2025 HISTORY: The patient is a 74-year-old male with constipation. FINDINGS: Supine radiographs of the abdomen demonstrate normal appearanceof the bony structures. The bowel gas pattern is nonobstructive. There magdaleno moderate amount of fecal material in the colon from the cecum to thedistal descending colon consistent with moderate constipation, similar tothat seen on the prior study performed 08/15/2023. No mass or radiopaquecalculus is seen. IMPRESSION: Nonobstructive bowel gas pattern. There is evidence of moderateconstipation, unchanged since 08/15/2023. Code 47003 -------- FINAL REPORT -------- Dictated By: Morgan Spicer Dictated Date: 01/22/2025 11:50 ET Assigned Physician: Morgan Spicer Reviewed and Electronically Signed By: Morgan Spicer Signed Date: 01/22/2025 11:51 ET Workstation ID: [id number] Transcribed By: Self Edit Transcribed Date: 01/22/2025 11:50 ET Chris Cortez MD IMG XR PROCEDURES Final Res ult * Lipid panel with reflex to direct LDL (05/24/2024 1:45 PM EST) Cholesterol 165 0 - 200 mg/dL LAB CHEMISTRY METHOD 05/24/2024 6:14 PM EST [facility] Triglycerides 135 0 - 150 mg/dL LAB CHEMISTRY METHOD 05/24/2024 6:14 PM EST [facility] HDL 46 >=40 mg/dL LAB CHEMISTRY METHOD 05/24/2024 6:14 PM EST [facility] LDL Calculated 92 0 - 100 mg/dL LAB CHEMISTRY METHOD 05/24/2024 6:14 PM [facility] VLDL Cholesterol Tomás 27 mg/dL LAB CHEMISTRY METHOD 05/24/2024 6:14 PM EST [facility] Non HDL Chol. (LDL+VLDL) 119 <145 mg/dL LAB CHEMISTRY METHOD 05/24/2024 6:14 PM EST [facility] Chol/HDL Ratio 3.6 0.0 - 4.4 LAB CHEMISTRY METHOD 05/24/2024 6:14 PM EST [facility] Blood Venous blood specimen / Unknown Venipuncture / Unknown 05/24/2024 1:45 PM EST 05/24/2024 1:45 PM EST Sara SOARES LAB BLOOD ORDERABLES Final Result [facility] [address] [place] [address], * External Colonoscopy Report (11/04/2020 5:09 PM EDT) Anatomical Region Laterality Modality Endoscopy Historical Provider GI~PROCEDURE ORDERABLES F inal Result * Hepatitis C Screening (10/06/2014) Hepatitis C Screening abstracted Historical Provider HEALTH MAINTENANCE Final Result from Last 3 Months or Most Recently Relevant to Health Maintenance Insurance [employer] Care Teams Finance Effectiveness Manager Relationship Specialty Start Date End Date Leticia Muniz MD [address] [place] [phone] PCP - General Internal Medicine 08/26/20
== END 2025-03-26 16:04 | disposition home or self-care (01) ==
PROVIDERS: PCP Internal Medicine; Visit Provider Psychiatry & Neurology Neurology
DX: G20.A1 Parkinson's disease without dyskinesia, without mention of fluctuations (principal); R25.2 Cramp and spasm; K59.09 Other constipation; R29.6 Repeated falls; M72.2 Plantar fascial fibromatosis
CPT/HCPCS: 99214

== ENCOUNTER → 2025-03-26 15:12 | Outpatient (BNVA) | payer OTHER, SELFPAY | PROVIDERS: PCP Internal Medicine; Visit Provider Psychiatry & Neurology Neurology | DX: G20.A1 Parkinson's disease without dyskinesia, without mention of fluctuations (principal); K59.09 Other constipation; R29.6 Repeated falls; M72.2 Plantar fascial fibromatosis; Z79.899 Other long term (current) drug therapy | CPT/HCPCS: 99212 ==